=== PATIENT | female | born 1990 | race African-American/Black ===

== ENCOUNTER 2017-03-30 15:12 | Emergency (ER) | payer SELFPAY ==
[~2017-03-30] VITALS: Ht 175.3 cm; Wt 96.4 kg
[2017-03-30 16:09] VITALS: BP 111/55
--- NOTE | 2017-03-30 16:37 | REP ---
LEFT TOES, FOUR VIEWS: HISTORY: Second toe trauma. There is no acute fracture or dislocation. The joint spaces are normal in appearance. IMPRESSION: There is no acute fracture or dislocation. Signed by Camden Ayers MD 03/30/2017 04:38 P
== END 2017-03-30 16:54 | disposition home or self-care (01) ==
LOC: M ED 15:12
DX: S93.505A Unspecified sprain of left lesser toe(s), initial encounter (principal); W18.40XA Slipping, tripping and stumbling without falling, unspecified, initial encounter; Y92.099 Unspecified place in other non-institutional residence as the place of occurrence of the external cause; Y93.9 Activity, unspecified; Y99.9 Unspecified external cause status